=== PATIENT | male | born 1945 | race Caucasian/White ===

== ENCOUNTER → 2018-12-19 10:52 | Outpatient (CLI) | payer MEDICARE, BC ==
[2010-08-05 16:10] VITALS: BMI 26.6
== END | disposition home or self-care (01) ==
LOC: D.HCCARDIO 12-16 09:30
PROVIDERS: ATTEND Internal Medicine Cardiovascular Disease
DX: I25.10 Atherosclerotic heart disease of native coronary artery without angina pectoris (principal)

== ENCOUNTER 2019-04-20 11:07 | Outpatient (CLI) | payer MEDICARE, BC ==
[~2019-04-20] VITALS: Ht 177.8 cm; Wt 87.7 kg
--- NOTE | ~2019-04-20 | HEMODYNAMI ---
PATIENT:JONO REYNOSO MEDICAL RECORD: [id number] : 43 [facility]ATION:[facility] ADMISSION DATE: 04/20/19 Generatedon:04/20/201914:44 Patient name: JONO REYNOSO Patient #: [id number] : 1945 Date of study: 04/20/2019 Page: Of Hemodynamic Procedure Report Patient Data Patient Demographics Procedure consent was obtained First Name: JONO Gender: Male Last Name: EDGARDO : 1945 Middle Initial: JANELL 3RD Age: 73 year(s) Patient #: [id number] Race: Unknown SSN: [id number] Additional ID: [id number] Contact details [address]: [address] [place] [address] DRIVE State: [place] City: [place] Zip code: [address] Past Medical History Allergies: No known allergies Admission Admission Data Admission Date: 04/20/2019 Admission Time: 11:07 Arrival Date: 04/20/2019 Arrival Time: 0:00 Admit Source: Other Insurance Payor: Medicare, Private health insurance Height (in.): 67 BSA: 2.01 (m2) Height (cm.): 170.18 BMI: 31.01 (kg/m2) Weight (lbs.): 198 Weight (kg.): 89.81 Lab Results Lab Result Date: 04/20/2019 Lab Result Time: 0:00 Biochemistry Name Units Result Min Max BUN mg/dl 23 --(----)-* 7 18 Creatinine mg/dl 1.1 --(--*-)-- 0.6 1.3 eGFR ml/min 69 *-(----)-- 90 120 NONAFRICAN CBC Name Units Result Min Max Hemoglobin g/dl 15.1 --(-*--)-- 13.5 17.5 Procedure Procedure Types Cath Procedure Diagnostic Procedure LHC LH w/Coronaries Sedation Charges Moderate Sedation up to 15 minutes PCI Procedure Coronary Stent Coronary Stent Initial Procedure Description Procedure Date Procedure Date: 04/20/2019 Procedure Start Time: 14:09 Procedure End Time: 14:38 Procedure Staff Name Function Tray Mantilla MD Performing Physician Selma Bernabe RT Monitor Darius Champagne RN Nurse Jennifer Bui RT Scrub Sonia Pérez RN Passenger Rate Clerk Indication Chest pain CHF Procedure Data Cath Procedure Fluoroscopy Diagnostic fluoroscopy Total fluoroscopy Time: 6.6 time: 6.6 min min Diagnostic fluoroscopy Total fluoroscopy dose: dose: 1066 mGy 1066 mGy Contrast Material Contrast Material Type Amount (ml) Isovue 300 116 Entry Location Entry Primary Successful Side Size Upsize Upsize Entry Closure Beltran ccessful Closure Location (Fr) 1 (Fr) 2 (Fr) Remarks Device Remarks Radial Right 6 Fr Mechanical artery Short Compression Estimated blood loss: 5 ml Diagnostic catheters Device Type Used For End Catheter Placement DIAGNOSTIC Eugene 110cm Procedure 5Fr catheter ([id number]) DIAGNOSTIC Op[place] 110cm 5 Procedure Fr catheter ([id number]) Procedure Complications No complications Procedure Medications Medication Administration Route Dosage 0.9% NaCl I.V. 100 ml/hr Oxygen etCO2 Nasal cannula 2 l/min Lidocaine 2% added to field 20 Heparin Flush Bag added to field 2 bags (1000units/500ml NS) Radial Cocktail added to field 1 syringe (Verapamil 2mg/Nitro 400mcg/Heparin 1500units) Versed I.V. 2 mg Fentanyl I.V. 50 mcg Heparin Bolus I.V. 9000 units Plavix P.O. 600 mg Hemodynamics Rest BSA: 2.01 (m2) O2 Consumption: Estimated: 236.62 (ml/min) O2 Consumption indexed : Estimated:117.72 (ml/min/m) Heart Rate: 77 (bpm) Pressure Samples Time Site Value (mmHg) Purpose Heart Use Rate(bpm) 14:15 LV 111/-1,10 Snapshot 82 14:16 AO 97/55(70) Pullback 80 14:16 LV 107/-3,7 Pullback 80 Gradients Valve Time Site 1 Site 2 Mean SEP/DFP Peak To Heart Use (mmHg) (sec/min) Peak Rate (mmHg) (bpm) Aortic 14:16 LV AO 6 18 10 80 107/-3,7 97/55(70) Calculations Valve P-P Mean Valve Index Valve Source Name Gradient Area Flow (cm2) Aortic 10 6 10 6 Snapshots Pre Cath Intra NCS Post Cath Vital Signs Time Heart Resp SPO2 etCO2 NIBP (mmHg) Rhythm Pain Sedation Rate (ipm) (%) (mmHg) Status Level (bpm) 14:00:36 78 16 98 18.7 147/89(131) NSR 0 (11) 10(A) , No pain 14:04:52 87 11 97 32.2 132/84(101) NSR 0 (11) 10(A) , No pain 14:09:06 78 10 98 31.5 121/79(94) NSR 0 (11) 10(A) , No pain 14:13:18 77 10 97 17 119/71(95) NSR 0 (11) 9(A) , No pain 14:17:30 76 14 98 34.5 111/64(90) NSR 0 (11) 9(A) , No pain 14:21:35 86 16 97 33.8 121/78(100) NSR 0 (11) 9(A) , No pain 14:25:45 79 16 97 33.8 132/74(97) NSR 0 (11) 9(A) , No pain 14:29:57 80 16 97 33.8 117/66(94) NSR 0 (11) 9(A) , No pain 14:34:07 76 17 96 33.8 129/72(94) NSR 0 (11) 10(A) , No pain 14:38:19 73 10 98 22.5 128/78(100) NSR 0 (11) 10(A) , No pain Medications Time Medication Route Dose Verified Delivered Reason Not es Effectiveness by by 13:59:54 0.9% NaCl I.V. 100 Tray Sonia used for ml/hr Jose Rafael Pérez administrative assistant receptionist 14:00:00 Oxygen etCO2 2 l/min Tray Sonia used for Nasal Jose Rafael Pérez procedure cannula RN 14:00:05 Lidocaine 2% added 20ml Tray Tray for local to vial Jose Rafael Mantilla MD anesthetic field 14:00:10 Heparin Flush added 2 bags Tray Tray used for Bag to Jose Rafael Mantilla MD procedure (1000units/500ml field NS) 14:00:21 Radial Cocktail added 1 Tray Tray used for (Verapamil to syringe Jose Rafael Mantilla MD procedure 2mg/Nitro field 400mcg/Heparin 1500units) 14:09:04 Versed I.V. 2 mg Tray Sonia for sedation Jose Rafael Pérez RN 14:09:22 Fentanyl I.V. 50 mcg Tray Sonia for sedation Jose Rafael Pérez RN 14:24:12 Heparin Bolus I.V. 9000 Tray Sonia for charley ified units Jose Rafael Pérez anticoagulation with Dr. MELODY Mantilla 14:36:47 Plavix P.O. 600 mg Tray Sonia for Jose Rafael Pérez antiplatelet RN therapy Procedure Log Time Note 13:17:57 Arrival Date: 04/20/2019 12:00:00 AM 13:17:59 Admit Source: Other 13:18:05 Insurance Payor : Private health insurance, Medicare 13:18:25 Patient Height : 67 inches 13:18:34 Patient Weight : 198 lbs 13:22:54 Lab Result : eGFR NONAFRICAN 69 ml/min 13:22:54 Lab Result : Hemoglobin 15.1 g/dl 13:22:54 Lab Result : BUN 23 mg/dl 13:22:54 Lab Result : Creatinine 1.1 mg/dl 13:25:13 Indication : Chest pain 13:25:33 Indication : CHF 13:26:45 ACC Patient presents with Unstable Angina CCS Anginal Class 4--Inability to carry out any physical activity w/o angina. Angina may occur at rest. 13:26:57 ACCPatient has been prescribed/administered the following anti-anginal medication within the last 2 weeks: None 13:27:02 Procedure Status Elective Heart Cath (OP). 13:27:14 Fire Safety Assessment: A--An alcohol-based skin anteseptic being used preoperatively., C--Open oxygen or nitrous oxide is being used., D--An ESU, laser, or fiber-optic light is being used. 13:27:27 Physical assessment completed. ASA score P 3 - A patient with severe systemic disease as per Tray Mantilla MD. 13:27:32 2) 60-89 Mildly reduced kidney function, and other findings (as for stage 1) point to kidney disease. 13:27:59 Maximum allowable contrast dose (3.7 X eGFR X 0.75)191 ml. 13:28:48 H&P Date Dictated: 04/14/2019 Within 30 days and on chart., H&P Addendum completed by physician on day of procedure. (MUST COMPLETE FOR ALL OUTPATIENTS). 13:44:52 Darius Champagne RN sent for patient. Start room use. 13:45:20 Time tracking: Regular hours (M-F 7:00 - 5:00) 13:45:25 Plan of Care:Hemodynamics will remain stable., Cardiac rhythm will remain stable., Comfort level will be maintained., Respiratory function will remain adequate., Patient/ family verbilizes understanding of procedure., Procedure tolerated without complication., Recovers from procedure without complications.. 13:45:31 Patient received from Pre/Post Procedure Room to CCL 2 Alert and oriented. Tansferred to table in Supine position. 13:45:34 Signed procedure consent form obtained from patient. 13:45:35 Warm blankets applied, and eddy hugger turned on for patient comfort. 13:52:13 Correct patient and procedure confirmed by team. 13:52:14 ECG and BP/O2 sat monitors applied to patient. 13:52:16 Pre-procedure instructions explained to patient. 13:52:18 Pre-op teaching completed and patient verbalized understanding. 13:52:20 Family in waiting room. 13:52:23 Patient NPO since Midnight. 13:52:32 Patient allergic to No known allergies 13:52:35 Is the patient allergic to Iodine/contrast media? No. 13:52:37 Was the patient premedicated? Yes 13:52:38 Is patient on blood thinner?No 13:52:40 Patient diabetic? Unknown. 13:53:03 If diabetic: On Metformin? No 13:53:15 Previous problem with sedation/anesthesia? No ? 13:59:28 Vital chart was started 13:59:54 0.9% NaCl 100 ml/hr I.V. was administered by Sonia Pérez RN; used for procedure; Verbal order read back and verified. 14:00:00 Oxygen 2 l/min etCO2 Nasal cannula was administered by Sonia Pérez RN; used for procedure; Verbal order read back and verified. 14:00:05 Lidocaine 2% 20ml vial added to field was administered by Tray Mantilla MD; for local anesthetic; Verbal order read back and verified. 14:00:10 Heparin Flush Bag (1000units/500ml NS) 2 bags added to field was administered by Tray Mantilla MD; used for procedure; Verbal order read back and verified. 14:00:21 Radial Cocktail (Verapamil 2mg/Nitro 400mcg/Heparin 1500units) 1 syringe added to field was administered by Tray Mantilla MD; used for procedure; Verbal order read back and verified. 14:01:24 Snore? Yes 14:01:26 Sleep apnea? No 14:01:37 Patient pain scale 0/10 ?. 14:01:45 IV patent on arrival in left antecubital with 0.9% NaCl at [facility]. 14:01:48 Lab results completed and on chart. 14:03:59 Risk of Mortality: .1 14:04:05 Risk of blood transfusion: 0.1 14:04:10 Risk of DAVIDA: .7 14:04:14 Right Radial & Right Groin area was prepped with chlora-prep and draped in sterile fashion 14:04:15 Alarms reviewed by R. N. 14:04:16 Sharps counted by scrub and verified by R.N. 14:04:48 Physician paged 14:07:28 Use device set Radial Dx or PCI 14:07:29 ACIST Syringe (18064) opened to sterile field. 14:07:30 Medline Cath Pack ([id number]) opened to sterile field. 14:07:30 Bag Decanter (2002S) opened to sterile field. 14:07:31 ACIST Hand Control (35866) opened to sterile field. 14:07:32 ACIST Manifold (91525) opened to sterile field. 14:07:32 Tegaderm 4 x 4 (1626W) opened to sterile field. 14:07:34 MBrace Wrist Support ([id number]) opened to sterile field. 14:07:36 NEEDLE Cook 21G 4cm Radial (U74503) opened to sterile field. 14:07:39 EMERALD Guide Wire (839-228) opened to sterile field. 14:07:48 SHEATH 6FR RAIN (7635568) opened to sterile field. 14:07:53 TR BAND Standard ([id number]) opened to sterile field. 14:08:02 Baseline sample Acquired. 14:08:08 Full Disclosure recording started 14:08:12 Physician arrived 14:08:13 --------ALL STOP TIME OUT------ 14:08:21 Final Timeout: patient, procedure, and site verified with staff and physician. All members of the team are in agreement. 14:08:23 Right Radial & Right Groin site verified by team. 14:08:28 Sedation plan: IV Moderate Sedation Medication:Versed, Fentanyl 14:08:35 Procedure started. 14:09:04 Versed 2 mg I.V. was administered by Sonia Pérez RN; for sedation; Verbal order read back and verified. 14:: Fentanyl 50 mcg I.V. was administered by Sonia Pérez RN; for sedation; Verbal order read back and verified. 14:09:47 Local anesthetic to right radial artery with Lidocaine 2% by Tray Mantilla MD.INITIAL ACCESS ONLY 14:12:09 A 6 Fr Short sheath was inserted into the Right Radial artery 14:12:31 A DIAGNOSTIC Eugene 110cm 5Fr catheter (055161) was advanced over the wire and used for Procedure. 14:15:09 GLIDE WIRE ANGLE 260cm (FI0806) opened to sterile field. 14:15:24 TORQUE DEVICE PLASTIC .038 ( TD01) opened to sterile field. 14:16:04 glidewire used to corss valve 14:16:08 LV gram done using VALENZUELA 14:16:16 EF : 30 % 14:16:47 RCA angiography performed. 14:18:21 Catheter exchanged over wire. 14:18:29 A DIAGNOSTIC Op[place] 110cm 5 Fr catheter (234217) was advanced over the wire and used for Procedure. 14:18:52 LCA angiography performed. 14:21:16 Catheter exchanged over wire. 14:22:22 BMW 300cm [place] 2 J wire ([id number]) opened to sterile field. 14:22:22 GUIDE 6FR XBLAD 3.5 catheter (99150827) opened to sterile field. 14:22:23 TUBING High Pressure Extension Tubing (Jose Rafael) ([id number]) opened to sterile field. 14:22:24 INFLATOR Merit BasixCompak (EE4332) opened to sterile field. 14:22:45 ACC Pre-intervention TERESA Flow is 1. 14:23:07 Pre PCI Site: [place] mCirc has 99% stenosis. 14:23:15 6 Fr xblad3.5 guide catheter was inserted over the wire 14:24:12 Heparin Bolus 9000 units I.V. was administered by Sonia Pérez RN; for anticoagulation; verified with Dr. Mantilla Verbal order read back and verified. 14:24:27 BMW wire advanced. 14:25:45 Wire advanced across lesion. 14:27:53 Inflate balloon Inflation number: 1 A EMERGE OTW 2.5 x 15 balloon ([id number]) was prepped and advanced across the Mid CX , then inflated to 10 SONIDO for 0:10 (min:sec) . 14:29:16 Balloon removed over the wire. 14:31:34 Place stent Inflation Number: 2 A RENEE OTW 2.75 x 15 stent ([id number]) was prepped and advanced across the Mid CX 99. The stent was deployed at 12 SONIDO for 0:12 (min:sec) 0. 14:32:53 ZEPHYR REGULAR TR BAND (347507) opened to sterile field. 14:33:03 Stent catheter was removed intact over wire. 14:33:07 ACC Post-intervention TERESA Flow is 3. 14:33:54 Wire removed. 14:33:55 Guide catheter removed. 14:34:49 ACT drawn and resulted at 305 seconds. (normal therapeutic range 180-240 seconds). 14:35:58 Sheath removed intact; hemostasis achieved with Mechanical Compression to the Right Radial artery. 14:36:00 Procedure ended.(Physican Out) 14:36:19 Fluoroscopy time 06.60 minutes. 14:36:26 Fluoroscopy dose: 1066 mGy 14:36:26 Flurop Dose total: 1066 14:36:33 Dose Area Product 93065 mGy/cm. 14:36:39 Contrast amount:Isovue 300 116ml. 14:36:41 Maximum allowable dose exceeded? No. 14:36:42 Sharps counted by scrub and verified by R.N. 14:36:47 Plavix 600 mg P.O. was administered by Sonia Pérez RN; for antiplatelet therapy; Verbal order read back and verified. 14:36:48 [place] band inflated with 10cc of air. 14:36:50 Insertion/operative site no bleeding no hematoma. 14:36:52 Post Procedure Pulses reassessed and unchanged 14:37:11 Post-procedure physical assessment completed. ASA score P 3 - A patient with severe systemic disease as per Tray Mantilla MD. 14:37:25 Post procedure rhythm: sinus rhythm 14:37:28 Estimated blood loss: 5 ml 14:37:31 Post procedure instruction explained to patient.Patient verbalizes understanding. 14:37:49 Procedure type changed to Cath procedure, Diagnostic procedure, LHC, [facility] w/Coronaries, Sedation Charges, Moderate Sedation up to 15 minutes, PCI procedure, Coronary Stent, Coronary Stent Initial 14:37:51 Procedure and supply charges have been captured, reviewed, submitted and are correct. 14:38:25 Procedure Complication : No complications 14:38:29 Vital chart was stopped 14:38:36 [facility] Findings: MVD- PCI performed (see procedure note) 14:38:42 Operative report dictated upon procedure completion. 14:38:46 See physician's report for complete and final results. 14:38:47 Report given to Pre/Post Procedure Room. 14:38:51 Patient transfered to Pre/Post Procedure Room with Stretcher. 14:38:54 Procedure ended. 14:38:54 Full Disclosure recording stopped Intervention Summary Intervention Notes Time ActionType Lesion and Equipment Action# Pressure Duration Attributes Used 14:27:53 Inflate Mid CX EMERGE OTW 1 10 00:10 balloon 2.5 x 15 balloon ([id number]) 14:31:34 Place stent Mid CX RENEE OTW 2.75 2 12 00:12 x 15 stent ([id number]) Device Usage Item Name Manufacture Quantity Catalog Number Hospital Part Current M inimal Lot# / Charge Number Stock Stock Serial# Code ACIST Syringe Acist 1 56298 185378 738979 273959 2 0 (08722) Medical Systems Inc Medline Cath Medline 1 [id number] 631218 10327 168083 5 Pack ([id number]) Bag Decanter Microtek 1 2001S 339861 93374 386587 5 () Medical Inc. ACIST Hand Acist 1 84321 633308 830536 391546 5 Control Medical (14554) Systems Inc ACIST Acist 1 39191 959812 571432 457386 5 Manifold Medical (89678) Systems Inc Tegaderm 4 x 3M 1 1626W 001933 685571 119929 5 4 (1626W) MBrace Wrist Advanced 1 140-0250-00 230525 25852 296867 5 Support Vascular (308882594) Dynamics NEEDLE Cook Germfask Medical 1 C31382 207993 964037 381992 5 21G 4cm Radial (Q44687) EMERALD Guide Cardinal 1 502-455 641651 612254 504483 5 Wire Health (502-455) SHEATH 6FR Cardinal 1 5844209 799064 4219063 855460 5 RAIN Health (6656856) TR BAND Terumo 1 [id number] 229115 414840 848211 4 0 Standard ([id number]) DIAGNOSTIC Terumo 1 40-5023 653384 443985 213693 5 Eugene 110cm 5Fr catheter (783742) GLIDE WIRE Terumo 1 OP6630 940603 178328 197028 5 ANGLE 260cm (KV2375) TORQUE DEVICE [place] 1 TD01 728272 055219 326752 5 PLASTIC .038 Scientific ( TD01) DIAGNOSTIC Terumo 1 40-5013 102940 179506 987186 5 Op[place] 110cm 5 Fr catheter (653195) BMW 300cm Fernandez 1 [id number] 500378 517397 069069 5 [place] 2 J Vascular wire (0323252Z) GUIDE 6FR Cardinal 1 35944642 715611 265871 143638 1 0 XBLAD 3.5 Health catheter (48623797) TUBING High Merit 1 [id number] 235358 75229 709506 1 0 Pressure Medical Extension Tubing (Mantilla) (JC7327P) INFLATOR Merit 1 LB2720 153248 680858 313690 1 5 [facility] Medical BasixCompak (GF7062) EMERGE OTW [place] 1 [id number] 479620 143337 911930 5 [id number] 2.5 x 15 Scientific balloon ([id number]) RENEE OTW 2.75 Medtronic 1 [id number] 921747 5558897 731599 5 [id number] x 15 stent ([id number]) ZEPHYR Cardinal 1 762442 490683 6603927 288506 5 REGULAR TR Health BAND (108639) Signature Audit [place] Stage Time Signature Unsigned Intra-Procedure 04/20/2019 Selma Benrabe 2:39:19 PM RT(R); Sonia RT(R) Beto RN; Tray Mantilla MD Signatures Performing Physician : Signature : Tray Mantilla MD Date : Time : Monitor : Selma Srinivasa Signature : RT Date : Time : Nurse : Buffie Champagne RN Signature : Date : Time : [place] [address] [place] [address]
[2019-04-20] MEDS ORDERED: NITROQUICK0.4 MG SL (11:31)
[2019-04-20] MEDS ORDERED: PROSCAR5 MG PO (11:32)
[2019-04-20] MEDS ORDERED: COZAAR50 MG PO (11:32)
[2019-04-20] MEDS ORDERED: FLOMAX0.4 MG PO (11:33)
[2019-04-20] MEDS ORDERED: ZYLOPRIM300 MG PO (11:33)
[2019-04-20] MEDS ORDERED: CIALIS10 MG PO (11:34)
[2019-04-20 11:44] VITALS: BP 146/82; Ht 177.8 cm; Wt 87.7 kg
[2019-04-20 11:58] LABS: BASOPHILS 0.4 % (0-2); EOSINOPHILS 6.6 % (0-7); HEMATOCRIT 43.6 % (42.0-54.0); HEMOGLOBIN 15.1 g/dL (13.5-17.5); IMMATURE GRANULOCYTES 0.2 % (0-5); LYMPHOCYTES 27.2 % (15-50); MCH 32.6 pg (26.0-34.0); MCHC 34.6 g/dL (31.0-37.0); MCV 94.2 fL (80.0-100.0); MONOCYTES 10.5 % (2-11); NEUTROPHILS 55.1 % (40-80); RBC 4.63 10x6/uL (4.20-6.10); RDW 12.7 % (11.5-14.5); WBC 5.6 10x3/uL (4.8-10.8)
[2019-04-20 11:59] LABS: PLATELET COUNT 150 10x3/uL (130-400)
[2019-04-20 12:05] LABS: ANION GAP 10.9 mmol/L (8-16); CALCIUM 9.5 mg/dL (8.5-10.1); CARBON DIOXIDE 30.3 mmol/L (21.0-32.0); CREATININE - SERUM 1.1 mg/dL (0.6-1.3); POTASSIUM - SERUM 4.2 mmol/L (3.5-5.1)
[2019-04-20 12:19] LABS: CHOL - HDL RATIO 5.7 ratio (2.3-4.9); LDL-HDL RATIO 3.9 ratio (1.5-3.5)
[2019-04-20] MEDS ORDERED: BAYER CHEWABLE81 MG PO (14:48)
[2019-04-20] MEDS ORDERED: PLAVIX75 MG PO (14:48)
--- NOTE | 2019-04-20 14:55 | NUR ---
PATIENT ARRIVED TO ROOM 5, PLACED ON CM AND 2L NC. VSS. RIGHT Z BAND IN PLACE, NO S/S OF BLEEDING OR HEMATOMA. PHYSICIAN PREVIOUSLY AT BEDSIDE TO UPDATE PATIENT SPOUSE.
--- NOTE | 2019-04-20 15:10 | NUR ---
PATIENT RESTING, PRESENT AT BEDSIDE. VSS ON 2L NC. RIGHT Z BAND IN PLACE, NO S/S OF LBEEDING OR HEMATOMA. NO C/O PAIN, NUMBNESS, OR TINGLING. NO N/V.
--- NOTE | 2019-04-20 15:40 | NUR ---
PATIENT AWAKE, SITTING UP IN BED. VSS ON ROOM AIR. RIGHT Z BAND IN PLACE, NO S/S OF BLEEDING OR HEMATOMA. NO C/O PAIN, NUMBNESS, OR TINGLING. PATIENT GIVEN TURKEY SANDWICH AND WATER PER REQUEST, NO N/V.
--- NOTE | 2019-04-20 16:10 | NUR ---
PATIENT AWAKE, SITTING UP EATING SANDWICH. VSS ON ROOM AIR. RIGHT RADIAL DRESSING IS CDI, NO S/S OF BLEEDING OR HEMATOMA. NO C/O PAIN, NUMBNESS, OR TINGLING.
--- NOTE | 2019-04-20 16:40 | NUR ---
PATIENT AWAKE, VSS ON ROOM AIR. RIGHT Z BAND IN PLACE, NO S/S OF BLEEDING OR HEMATOMA. NO C/O PAIN, NUMBNESS, OR TINGLING. NO N/V. SPOUSE PRESENT AT BEDSIDE.
--- NOTE | 2019-04-20 17:10 | NUR ---
PATIENT RESTING, VSS ON ROOM AIR. RIGHT Z BAND IN PLACE, NO S/S OF BLEEDING OR HEMATOMA.
--- NOTE | 2019-04-20 17:40 | NUR ---
BEGIN AIR REMOVAL PROTOCOL, 3CC OF AIR REMOVED WITH BLEEDING NOTED. 4CC OF AIR REPLACED IN Z BAND WITH NO FURTHER S/S OF BLEEDING OR HEMATOMA. VSS ON ROOM AIR. NO C/O PAIN, NUMBNESS, OR TINGLING.
--- NOTE | 2019-04-20 18:10 | NUR ---
3CC OF AIR REMOVED FROM Z BAND, NO S/S OF BLEEDING OR HEMATOMA. VSS ON ROOM AIR. NO C/O PAIN, NUMBNESS, OR TINGLING. NO N/V.
--- NOTE | 2019-04-20 18:40 | NUR ---
3CC OF AIR REMOVED FROM Z BAND, NO S/S OF BLEEDING OR HEMATOMA. NO C/O PAIN, NUMBNESS, OR TINGLING. VSS ON ROOM AIR.
--- NOTE | 2019-04-20 19:10 | NUR ---
REMAINING AIR REMOVED FROM Z BAND, NO S/S OF BLEEDING OR HEMATOMA. DRESSING APPLIED IS CDI. IV REMOVED. DISCONNECTED FROM MONITORS TO GET DRESSED. NO C/O PAIN, NUMBNESS, OR TINGLING. NO N/V.
--- NOTE | 2019-04-20 19:20 | NUR ---
PATIENT VOIDED WITHOUT DIFFICULTY. RIGHT RADIAL DRESSING IS CDI, NO S/S OF BLEEDING OR HEMATOMA. WRITTEN AND VERBAL DISCHARGE INSTRUCTIONS AND MEDICATION COMPLIANCE GIVEN TO PATIENT AND SPOUSE, BOTH VOICE UNDERSTANDING.
--- NOTE | 2019-04-20 19:35 | NUR ---
PATIENT TRANSPORTED VIA WHEELCHAIR TO CAR WITH SPOUSE DRIVING, ALL BELONGINGS WITH PATIENT.
== END 2019-04-20 19:35 ==
LOC: D.CATH 11:07
PROVIDERS: ATTEND Internal Medicine Cardiovascular Disease
DX: I25.110 Atherosclerotic heart disease of native coronary artery with unstable angina pectoris (principal); R06.02 Shortness of breath
CPT/HCPCS: C9600; 93458

== ENCOUNTER → 2019-10-20 09:41 | Outpatient (CLI) | payer MEDICARE, BC ==
[2019-04-20 11:44] VITALS: BMI 27.7
[~2019-10-20 09:41] MED LIST: BAYER CHEWABLE81 MG PO; CIALIS10 MG PO; COZAAR50 MG PO; FLOMAX0.4 MG PO; NITROQUICK0.4 MG SL; PLAVIX75 MG PO; PROSCAR5 MG PO; ZYLOPRIM300 MG PO
== END | disposition home or self-care (01) ==
LOC: D.HCCECHO 09:41
PROVIDERS: ATTEND Internal Medicine Cardiovascular Disease
DX: R06.02 Shortness of breath (principal)